=== PATIENT | male | born 1930 | race Native Hawaiian/Other Pacific Islander ===

== ENCOUNTER 2017-04-29 05:40 | Outpatient (CLI) | payer MEDICARE, BC ==
[~2017-04-29] VITALS: Ht 172.7 cm; Wt 62.8 kg
[~2017-04-29 05:40] MED LIST: ACET-2267 PO; ASPI-808 PO; ASPI325T32 PO; ATOR10TA PO; ATOR10TA66 PO; CEFU500T PO; CPR500T PO; EYE VITAMIN PO; FESO4TAB2 PO; FURO-125 PO; FURO20TA4 PO; FURO80TA3 PO; LISI40TA PO; M-171CAP PO; METO-395 PO; MIRT15TA3 PO; MIRT7.5T8 PO; POTA10CA43 PO; POTA10TA10 PO; PROSTATE SUPPORT PO; SENN-1 PO; SENN-140 PO; SENN-36 PO; TMSL.4C PO; TRM50T PO; TROS60CA4 PO; VIT1CAPS9 PO; [UNRECOGNIZED DRUG - OTHER] PO
[2017-04-30] MEDS ORDERED: POLY119P5 PO (10:54)
[2017-04-30] MEDS ORDERED: MIRT15TA PO (10:54)
[2017-04-30] MEDS ORDERED: MIRA50TA PO (10:54)
[2017-04-30] MEDS ORDERED: FURO40TA4 PO (10:54)
[2017-04-30] MEDS ORDERED: LISI-556 PO (10:54)
[2017-04-30] MEDS ORDERED: TAMS0.4C2 PO (10:54)
[2017-04-30] MEDS ORDERED: TRAM50TA2 PO (10:54)
[2017-04-30] MEDS ORDERED: FERR-74 PO (10:54)
[2017-04-30] MEDS ORDERED: ALPR0.25 PO (10:54)
[2017-04-30] MEDS ORDERED: METO-395 PO (10:54)
[2017-05-05] MEDS ORDERED: TRAM50TA2 PO (10:24)
== END 2017-04-30 11:01 ==
LOC: PREOP 05:40
PROVIDERS: ATTEND Surgery
DX: Z01.818 Encounter for other preprocedural examination (principal); C44.622 Squamous cell carcinoma of skin of right upper limb, including shoulder

== ENCOUNTER 2017-05-05 07:22 | Day surgery (SDC) | payer MEDICARE, BC ==
[~2017-05-05] VITALS: Ht 172.7 cm; Wt 62.8 kg
[~2017-05-05 07:22] MED LIST changes: +ALPR0.25 PO; +FERR-74 PO; +FURO40TA4 PO; +LISI-556 PO; +MIRA50TA PO; +MIRT15TA PO; +POLY119P5 PO; +TAMS0.4C2 PO; +TRAM50TA2 PO
--- OUTSIDE RECORDS SUMMARY | 2017-05-05 07:27 | XMS REPORT | Continuity of Care Document ---
Author Author [facility] Organization [facility] Address Unknown Phone Unavailable Allergies Active Description Code Type Severity Reaction Onset Reported/Identified Relationship to Patient Clinical Status Yes Sulfa (Sulfonamide Antibiotics) [id number] Drug Allergy Unknown HIVES 10/27 Medications There is no data. 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 11/15/2012 MARIA D ROJAS MD Ot 706.2 SEBACEOUS CYST 11/15/2012 MARIA D ROJAS MD Ot V74.8 SCREEN-BACTERIAL DIS NEC 01/17/2014 BASIM ODONNELL DO Ot 724.02 SPINAL STENOSIS, LUMBAR REG, W/OUT NEURO 01/17/2014 BASIM ODONNELL DO Ot V57.1 PHYSICAL THERAPY NEC 02/07/2015 ARPAN MEJIA, LOI Mclaughlin Ot 599.70 02/07/2015 CRYSTAL MEJIA, MARIA D Fitch Ot 706.2 02/07/2015 MARIA D ROJAS MD Ot 709.9 02/07/2015 MARIA D ROJAS MD Ot V72.84 02/07/2015 ARPAN MEJIA, LOI Mclaughlin Ot 185 02/07/2015 JAKI CYR Ot 724.02 02/07/2015 JKAI CYR Ot 728.87 05/31/2015 ARPAN MEJIA, LOI Mclaughlin Ot 599.70 05/31/2015 CRYSTAL MEJIA, MARIA D Fitch Ot 706.2 05/31/2015 MARIA D ROJAS MD Ot 709.9 05/31/2015 MARIA D ROJAS MD Ot V72.84 05/31/2015 ARPAN MEJIA, LOI Mclaughlin Ot 185 05/31/2015 JAKI CYR Ot 724.02 05/31/2015 JAKI CYR Ot 728.87 05/31/2015 Ot K59.00 06/06/2015 Ot K59.00 06/11/2015 CHLOE MEJIA FAC, ALI FACP CCDS Ot C61 MALIGNANT NEOPLASM OF PROSTATE 06/11/2015 CHLOE MEJIA FAC, ALI FACP CCDS Ot E87.6 HYPOKALEMIA 06/11/2015 CHLOE MEJIA FACC, ALI FACP CCDS Ot F32.9 MAJOR DEPRESSIVE DISORDER, SINGLE EPISOD 06/11/2015 CHLOE MEJIA FACC, ALI FACP CCDS Ot F41.9 ANXIETY DISORDER, UNSPECIFIED 06/11/2015 CHLOE MEJIA FACC, ALI FACP CCDS Ot I10 ESSENTIAL (PRIMARY) HYPERTENSION 06/11/2015 CHLOE MEJIA FACC, ALI FACP CCDS Ot I44.2 ATRIOVENTRICULAR BLOCK, COMPLETE 06/11/2015 CHLOE MEJIA FACC, ALI FACP CCDS Ot I50.31 ACUTE DIASTOLIC (CONGESTIVE) HEART FAILU 06/11/2015 CHLOE MEJIA FACC, ALI FACP CCDS Ot K59.00 CONSTIPATION, UNSPECIFIED 06/11/2015 CHLOE MEJIA FAC, ALI FACP CCDS Ot M19.90 UNSPECIFIED OSTEOARTHRITIS, UNSPECIFIED 06/11/2015 CHLOE MEJIA FAC, ALI FACP CCDS Ot 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.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 06/11/2015 CHLOE MEJIA [facility], ALI FACP CCDS Ot R00.1 BRADYCARDIA, UNSPECIFIED 06/11/2015 CHLOE MEJIA [facility], ALI FACP CCDS Ot Z66 DO NOT RESUSCITATE 06/13/2015 Ot K59.00 06/14/2015 ARPAN MEJIA, LOI Mclaughlin Ot 599.70 06/14/2015 CRYSTAL MEJIA, MARIA D Fitch Ot 706.2 06/14/2015 CRYSTAL MEJIA, MARIA D Fitch Ot 709.9 06/14/2015 CRYSTAL MEJIA, MARIA D Fitch Ot V72.84 06/14/2015 ARPAN MEJIA, LOI Mclaughlin Ot 185 06/14/2015 JAKI CYR [employer]ONING MACHINE SET UP OPERATOR Ot 724.02 06/14/2015 JAKI CYR TOOL HONING MACHINE SET UP OPERATOR Ot 728.87 06/14/2015 Ot K59.00 06/14/2015 CARLOS ALBERTO MJEIA, BRANDO Mclaughlin Ot R00.1 06/20/2015 BRANDO CARCAMO MD Ot R00.1 06/27/2015 CRYSTAL MEJIA, MARIA D Fitch Ot 706.2 06/27/2015 CRYSTAL MEJIA, MARIA D Fitch Ot 709.9 06/27/2015 CRYSTAL MEJIA, MARIA D Fitch Ot V72.84 06/27/2015 ARPAN MEJIA, LOI Mclaughlin Ot 185 06/27/2015 JAKI CYR TOOL HONING MACHINE SET UP OPERATOR Ot 724.02 06/27/2015 JAKI CYR TOOL HONING MACHINE SET UP OPERATOR Ot 728.87 06/27/2015 Ot K59.00 06/27/2015 CARLOS ALBERTO MEJIA, BRANDO A Ot R00.1 06/27/2015 CARLOS ALBERTO MEJIA, BRANDO Mclaughlin Ot R00.1 10/07/2015 ARPAN MEJIA, LOI Mclaughlin Ot 599.70 HEMATURIA, UNSPECIFIED 10/07/2015 CRYSTAL MEJIA, MARIA D Fitch Ot 706.2 SEBACEOUS CYST 10/07/2015 CRYSTAL MEJIA, MARIA D Fitch Ot 709.9 SKIN DISORDER NOS 10/07/2015 CRYSTAL MEJIA, MARIA D Fitch Ot V72.84 EXAM PRE-OPERATIVE NOS 10/07/2015 ARPAN MEJIA, LOI Mclaughlin Ot 185 MALIGN NEOPL PROSTATE 10/07/2015 JAKI CYR TOOL HONING MACHINE SET UP OPERATOR Ot 724.02 SPINAL STENOSIS, LUMBAR REG, W/OUT NEURO 10/07/2015 JAKI CYR TOOL HONING MACHINE SET UP OPERATOR Ot 728.87 MUSCLE WEAKNESS (GENERALIZED) 10/07/2015 Ot K59.00 CONSTIPATION , UNSPECIFIED 10/07/2015 CARLOS ALBERTO MEJIA, BRANDO Mclaughlin Ot R00.1 BRADYCARDIA, UNSPECIFIED 03/11/2016 ARPAN MEJIA, LOI Mclaughlin Ot 599.70 HEMATURIA, UNSPECIFIED 03/11/2016 CRYSTAL MEJIA, MARIA D Fitch Ot 706.2 SEBACEOUS CYST 03/11/2016 CRYSTAL MEJIA, MARIA D Fitch Ot 709.9 SKIN DISORDER NOS 03/11/2016 CRYSTAL MEJIA, MARIA D Fitch Ot V72.84 EXAM PRE-OPERATIVE NOS 03/11/2016 ARPAN MEJIA, OLI Mclaughlin Ot 185 MALIGN NEOPL PROSTATE 03/11/2016 JAKI CYR TOOL HONING MACHINE SET UP OPERATOR Ot 724.02 SPINAL STENOSIS, LUMBAR REG, W/OUT NEURO 03/11/2016 JAKI CYR TOOL HONING MACHINE SET UP OPERATOR Ot 728.87 MUSCLE WEAKNESS (GENERALIZED) 03/11/2016 Ot K59.00 CONSTIPATION , UNSPECIFIED 03/11/2016 CARLOS ALBERTO MEJIA, BRANDO Mclaughlin Ot R00.1 BRADYCARDIA, UNSPECIFIED Procedures Code Description Performed By Performed On [id number] 06/09/2015 [id number] 06/09/2015 [id number] 06/09/2015 Results There is no data. Encounters ACCT No. Visit Date/Time Discharge Status Pt. Type Provider Facility Loc./Unit Complaint [id number] 05/31/2015 13:42:00 05/31/2015 23:59:59 CLS Outpatient BRANDO CARCAMO MD [facility] CARD BRADYCARDIA, LOW BACK PAIN [id number] 12/04/2013 15:00:00 01/17/2014 11:23:00 DIS Outpatient BASIM ODONNELL DO [facility] REHAB LUMBAR STENOSIS [id number] 10/09/2013 14:18:00 10/09/2013 23:59:59 CLS Outpatient JAKI CYR [facility] RAD BACK PAIN, HX OF L2 -L5 LUMBAR STENOSIS [id number] 12/02/2012 10:45:00 12/02/2012 23:59:59 CLS Outpatient LOI ANTONY MD [facility] RAD PROSTATE CA [id number] 11/15/2012 06:50:00 11/15/2012 11:32:00 DIS Outpatient MARIA D ROJAS MD [facility] SDC SKIN LESION RIGHT HAND; SEBACEOUS CYST [id number] 10/27/2012 14:53:00 10/27/2012 23:59:59 CLS Outpatient MARIA D ROJAS MD [facility] PREOP SKIN LESION RIGHT HAND; SEBACEOUS CYST [id number] 10/26/2012 09:22:00 10/26/2012 23:59:59 CLS Outpatient LOI ANTONY MD [facility] RAD HEMATURIA [id number] 06/08/2015 16:45:00 ACT Inpatient CHLOE MEJIA FACC, JOÃO HERNANDEZ CCDS [facility] CSD COMPLETE HEART BLOCK [id number] 05/23/2015 10:33:00 Document Registration
[2017-05-05] MEDS ORDERED: ceFAZolin 2 GM/50 ML NS 50 ML IV ONE (07:30)
[2017-05-05] MEDS ORDERED: LACTATED RINGERS 1,000 ML IV PRN (07:30)
[2017-05-05] MEDS ORDERED: proPOfol 200 MG/20 ML (DIPRIVAN) VIAL IV ONE (08:07)
[2017-05-05] MEDS ORDERED: ONDANSETRON 4 MG/2 ML (SDV) Z0FRAN ONE (08:07)
[2017-05-05] MEDS ORDERED: DEXAMETHASONE 10 MG/ML (DECADRON) 1 ML VIAL ONE (08:07)
[2017-05-05 08:12] VITALS: BP 137/72
[2017-05-05] MEDS ORDERED: BUP/EPI 0.5% 1:200,000 (MARCAINE) 10ML VIAL IJ ONE (08:26)
--- NOTE | 2017-05-05 08:59 | Progress Note-Pre Operative ---
Pre-Operative Progress Note H&P Reviewed The H&P was reviewed, patient examined and no changes noted. 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
[2017-05-05] MEDS ORDERED: fentaNYL INJECTION 100 MCG/2 ML AMP ONE (09:30)
--- NOTE | 2017-05-05 10:22 | Operative Report ---
Operative Report Date of Procedure/Surgery May 05, 2017 Surgeon (s) MARIA D ROJAS MD Manager Human Capital (s): Thomas Davis (Med Student) Post-Operative Diagnosis Actinic keratosis Procedure Performed Excision with frozen section and primary closure Description of Procedure Anesthesia Type: MAC Estimated blood loss (mL): Minimal Specimen(s) collected/removed Skin lesion Description of the Procedure Indication for the procedure: This gentleman had undergone excision of a squamous cell carcinoma with negative margins about 4 years ago, involving the right index finger. He developed a recurrent lesion and shave biopsy was indicated 2 of squamous cell carcinoma. He was therefore offered reexcision with further frozen section to ensure negative margins. Informed consent was obtained after reviewing the procedure in detail. Description of the procedure: He was placed supine on the operative table and our anesthesiologist administered sedation, monitoring his vital signs. A gram of Ancef was administered intravenously as prophylaxis against wound infection. Right index finger was prepared and draped in the usual sterile manner. Local anesthesia was achieved using 0.5 percent Marcaine with epinephrine. An elliptical incision about 4 cm long by 2.5 cm wide was made and the lesion excised down to the subcutaneous tissue. It was oriented with silk sutures and sent for histological examination. The pathologist reported actinic keratosis with negative margins. Hemostasis was achieved using ligaclips and minimal use of cautery. Skin edges were then approximated using a combination of 60 and 4-0 nylon sutures, in an interrupted fashion. He tolerated the procedure well and was taken to the recovery room in a stable condition. Findings of the Procedure see op report Allergies and Home Medications Allergies Coded Allergies: Sulfa (Sulfonamide Antibiotics) (Unverified Allergy, HIVES, 10/27/12) Home Medications Acetaminophen 500 Mg Tablet, 500 MG PO Q6H PRN for PAIN, (Reported) Alprazolam 0.25 Mg Tablet, 0.125 MG PO DAILY, (Reported) take 1/2 of .25mg tab Aspirin 325 Mg Tablet.dr, 325 MG PO DAILY, (Reported) Atorvastatin Calcium 10 Mg Tablet, 10 MG PO HS, (Reported) Ferrous Sulfate 325 Mg Tablet, 325 MG PO Q48H, (Reported) Furosemide 40 Mg Tablet, 40 MG PO DAILY, (Reported) Lisinopril 5 Mg Tablet, 5 MG PO HS, (Reported) M-17/Nettle/[place]/Saw Palmet 1 Each Capsule, 1 CAP PO BID, (Reported) Metoprolol Succinate 100 Mg Tab.er.24h, 100 MG PO DAILY, (Reported) Mirabegron 50 Mg Tab.er.24h, 50 MG PO HS, (Reported) Mirtazapine 15 Mg Tablet, 15 MG PO HS, (Reported) Polyethylene Glycol 3350 119 Gm Powder, 17 GM PO MoWeFr, (Reported) Potassium Chloride 10 Meq Tablet.er, 10 MEQ PO DAILY, (Reported) Sennosides 8.6 Mg Tablet, 8.6 MG PO HS, (Reported) Tamsulosin HCl 0.4 Mg Cap.er.24h, 0.4 MG PO HS, (Reported) Tramadol HCl 50 Mg Tablet, 50 MG PO DAILY, (Reported) Vit C/Vit E/Lutein/Min/[place]-3 1 Each Capsule, 1 CAP PO DAILY, (Reported) [Power Pudding] , 2 TSP PO DAILY, (Reported) POWER PUDDING 2 TBSP DAILY WITH BREAKFAST, MAY INCREASE TO BID IF STILL CONSTIPATION. MARIA D ROJAS MD May 05, 2017 10:22 am
[2017-05-05] MEDS ORDERED: TRAM50TA2 PO (10:24)
--- NOTE | 2017-05-05 10:24 | Discharge Inst-Simple/Standard ---
Discharge Inst-Standard Discharge Medications New, Converted or Re-Newed RX: RX on Chart Patient Instructions/Follow Up Plan of Care/Instructions/FU: Right hand to be kept elevated as much as possible. Dressing may be replaced with a Band-Aid in 48 hours. Follow-up with my nurse in 2 weeks for suture removal Activity as Tolerated: Yes Discharge Diet: No Restrictions MARIA D ROJAS MD May 05, 2017 10:24 am
[2017-05-05] MEDS ORDERED: LIDOCAINE PF 2% 5 ML (XYLOCAINE) VIAL ONE (10:35)
[2017-05-05] MEDS ORDERED: morphine INJ 10 MG/ML 1ML (SYR OR VIAL) IVP PRN (11:00)
[2017-05-05 11:20] VITALS: BP 178/85
[2017-05-05 12:01] VITALS: BP 170/93
[2017-05-05 12:04] VITALS: BP 170/93
== END 2017-05-05 12:03 | disposition home or self-care (01) ==
LOC: SDC 07:22
PROVIDERS: ATTEND Surgery
DX: L57.0 Actinic keratosis (principal); Z88.2 Allergy status to sulfonamides; Z79.899 Other long term (current) drug therapy; Z79.82 Long term (current) use of aspirin; Z85.828 Personal history of other malignant neoplasm of skin; I50.9 Heart failure, unspecified; Z95.0 Presence of cardiac pacemaker; I11.0 Hypertensive heart disease with heart failure; E78.5 Hyperlipidemia, unspecified; I25.10 Atherosclerotic heart disease of native coronary artery without angina pectoris; F32.9 Major depressive disorder, single episode, unspecified; F41.9 Anxiety disorder, unspecified; K21.9 Gastro-esophageal reflux disease without esophagitis; Z85.46 Personal history of malignant neoplasm of prostate; Z11.2 Encounter for screening for other bacterial diseases
CPT/HCPCS: 87081

== ENCOUNTER → 2017-06-09 | Outpatient (CLI) | payer MEDICARE, BC ==
[~2017-06-09] MED LIST changes: -FERR-74 PO; +FERR325T18 PO
--- NOTE | 2017-06-09 12:39 | Diagnostic Imaging Report ---
EXAMINATION: Bilateral lower extremity venous Doppler. INDICATION: Leg pain and swelling. FINDINGS: Spectral and color flow imaging of the deep venous system of each lower extremity was performed. There are no prior studies available for comparison. FINDINGS: There is generally good blood flow and compressibility at all levels of the deep venous system. There is no evidence for a deep venous thrombosis. IMPRESSION: There is no evidence for a deep venous thrombosis of either lower extremity. Dictated by: Dictated on workstation # [id number]
== END ==
LOC: RAD 11:00
PROVIDERS: ATTEND Nurse Practitioner Family
DX: R22.41 Localized swelling, mass and lump, right lower limb (principal); R22.42 Localized swelling, mass and lump, left lower limb; M79.604 Pain in right leg; M79.605 Pain in left leg
CPT/HCPCS: 93970

== ENCOUNTER → 2017-06-14 | Outpatient (CLI) | payer MEDICARE, BC | LOC: CARD 12:50 | PROVIDERS: ATTEND Family Medicine | DX: I10 Essential (primary) hypertension (principal); R60.9 Edema, unspecified | CPT/HCPCS: 93306 ==